=== PATIENT | female | born 1980 | race Caucasian/White ===

== ENCOUNTER 2017-02-03 20:52 | Emergency (ER) | payer BC ==
[2017-02-03 21:02] VITALS: BP 143/79
[2017-02-03] MEDS ORDERED: Diazepam 5 MG Tab PO ONE ×2 (21:14→21:17)
[2017-02-03] MEDS ORDERED: Ketorolac 30 MG/ML SDV IM ONE (21:15)
[2017-02-03] MEDS ORDERED: Take Home: Acetaminophen/HYDROcodone 325-10 MG, 5 Tab Pack PO ONE (21:29)
--- NOTE | 2017-02-03 21:29 | EDM.PDOC ---
ED HPI GENERAL MEDICAL PROBLEM - General Chief Complaint: General Stated Complaint: Right Jaw Pain Time Seen by Provider: 02/03/17 20:58 Source of Information: Reports: Patient History Limitations: Reports: No Limitations - History of Present Illness INITIAL COMMENTS - FREE TEXT/NARRATIVE: Patient reports history of right sided TMJ pain, tonight while eating she was unable to close her mouth and had severe pain to the right jaw and ear. She states that this usually does resolve on its own, but the pain was to intense tonight. Pain also accompanied by pressure to the right side. No other complaints. No smoking or drugs, some alcohol taken today. At [facility] for the week. Onset: Today, Sudden Duration: Constant Location: Reports: Face Quality: Reports: Pressure, Sharp Severity: Severe Worsens with: Reports: Other (opening her mouth) Associated Symptoms: Reports: No Other Symptoms Right Face Pain Score (Numeric/FACES): 7 - Related Data Allergies Allergy/AdvReac Type Severity Reaction Status Date / Time No Known Allergies Allergy Verified 02/03/17 21:00 Home Meds: Home Meds . [No Known Home Meds] 02/03/17 [History] Social & Family History - Tobacco Use Smoking Status *Q: Never Smoker - Recreational Drug Use Recreational Drug Use: No ED ROS GENERAL - Review of Systems Review Of Systems: ROS reveals no pertinent complaints other than HPI. ED EXAM, GENERAL - Physical Exam Exam: See Below Exam Limited By: No Limitations General Appearance: Alert, WD/WN, Moderate Distress Eye Exam: Bilateral Eye: EOMI, PERRL Ears: Normal TMs Nose: Normal Inspection Throat/Mouth: Normal Inspection, Normal Lips, Normal Teeth, No Airway Compromise , Other (teeth are offset, unable to close symmetrically, bite is abnormal) Head: Atraumatic, Normocephalic Neck: Normal Inspection, Supple Neurological: Alert, Oriented, CN II-XII Intact, Normal Cognition, Normal Gait, Normal Reflexes, No Motor/Sensory Deficits Psychiatric: Normal Affect, Normal Mood Lymphatic: No Adenopathy Course - Vital Signs Last Recorded V/S: Last Vital Signs Temp 36.3 C 02/03/17 21:01 Pulse 81 02/03/17 21:01 Resp 16 02/03/17 21:01 BP 143/79 H 02/03/17 21:01 Pulse Ox 100 02/03/17 21:01 - Orders/Labs/Meds Meds: Medications Discontinued Medications Generic Name Dose Route Start Last Admin Trade Name Caitlin PRN Reason Stop Dose Admin Diazepam 10 mg 02/03/17 21:14 Valium. PO 02/03/17 21:15 ONETIME ONE Diazepam 5 mg 02/03/17 21:17 Valium. PO 02/03/17 21:18 ONETIME ONE Ketorolac Tromethamine 30 mg 02/03/17 21:15 Toradol IM 02/03/17 21:16 ONETIME ONE - Re-Assessments/Exams Free Text/Narrative Re-Assessment/Exam: 02/03/17 21:42 after toradol and valium, patient was manipulating her jaw and felt it correct. She still does have pain, pressure has resolved, definite pop felt during mastication of the jaw. Departure - Departure Time of Disposition: 21:39 Disposition: Home, Self-Care 01 Condition: Good Clinical Impression: TMJ arthritis - Discharge Information Instructions: Jaw Range of Motion Exercises, Temporomandibular Joint Syndrome Forms: ED Department Discharge Additional Instructions: You have been given medication to reduce the inflammation and relax your muscles. I have given you a take home pack of hydrocodone which is a pain reliever. Take 1-2 aleve daily for the next several days starting tomorrow You can use ice on the area. If you continue to have jaw pain you can return here for a trigger point injection of the painful area You may also need to see your dentist for persistent pain to your jaw Try to avoid any maneuvering that would open your mouth widely, grinding your teeth, or severe side to side movements Please call with any questions or concerns. - Problem List & Annotations (1) TMJ arthritis SNOMED Code(s): 13040132 Code(s): M26.69 - OTHER SPECIFIED DISORDERS OF TEMPOROMANDIBULAR JOINT Status: Acute Priority: Low Current Visit: Yes - Problem List Review Problem List Initiated/Reviewed/Updated: Yes - Assessment/Plan Assessment:: TMJ pain right side Plan: You have been given medication to reduce the inflammation and relax your muscles. I have given you a take home pack of hydrocodone which is a pain reliever. Take 1-2 aleve daily for the next several days starting tomorrow You can use ice on the area. If you continue to have jaw pain you can return here for a trigger point injection of the painful area You may also need to see your dentist for persistent pain to your jaw Try to avoid any maneuvering that would open your mouth widely, grinding your teeth, or severe side to side movements Please call with any questions or concerns.
== END 2017-02-03 21:43 | disposition home or self-care (01) ==
LOC: SUPCPDRO 20:52 → VM.ED 20:52
DX: M26.69 Other specified disorders of temporomandibular joint (principal)
CPT/HCPCS: 99283; A9270; J1885; 96372